=== PATIENT | male | born 2000 | race Caucasian/White ===

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

== ENCOUNTER 2022-02-10 12:37 | Emergency (ER) | payer MEDICAID ==
[~2022-02-10] VITALS: Ht 172.7 cm; Wt 66.0 kg
[2022-02-10] MEDS ORDERED: IPRATROPIUM BROMIDE (0.02%) 0.5MG/2.5ML NEB HHN STA (14:19)
[2022-02-10] MEDS ORDERED: ALBUTEROL (0.083%) 2.5MG/3ML NEB HHN STA (14:19)
[2022-02-10] MEDS ORDERED: PREDNISONE 20MG TABLET PO STA (14:19)
[2022-02-10 14:30] VITALS: BP 110/74
[2022-02-10] MEDS ORDERED: P50 MT (15:09)
[2022-02-10] MEDS ORDERED: ALBU6.7H9 INH (15:09)
[2022-02-10] MEDS ORDERED: GUAI600T26 MT (15:09)
== END 2022-02-10 16:12 | disposition home or self-care (01) ==
LOC: ER 13:57
DX: J20.9 Acute bronchitis, unspecified (principal); R06.2 Wheezing
CPT/HCPCS: 71045; 94640; 99283; J7512; Z7610

== ENCOUNTER 2022-04-07 13:31 | Emergency (ER) | payer MEDICAID ==
[~2022-04-07] VITALS: Ht 172.7 cm; Wt 70.0 kg
[~2022-04-07 13:31] MED LIST: ALBU6.7H9 INH; GUAI600T26 MT; P50 MT
[2022-04-07] MEDS ORDERED: VISCOUS LIDOCAINE 2% 15 ML UDC MM PRN (14:15)
[2022-04-07] MEDS ORDERED: IBUPROFEN 600MG TABLET PO ONE (14:15)
[2022-04-07 14:16] VITALS: BP 132/87
[2022-04-07] MEDS ORDERED: BENZ1LOZ73 MT (15:18)
[2022-04-07] MEDS ORDERED: IBUP-2029 MT (15:18)
== END 2022-04-07 15:39 | disposition home or self-care (01) ==
LOC: ER 13:42
DX: U07.1 COVID-19 (principal)
CPT/HCPCS: 99283

== ENCOUNTER 2023-05-08 10:21 | Emergency (ER) | payer MEDICAID ==
[~2023-05-08] VITALS: Ht 172.7 cm; Wt 73.0 kg
[~2023-05-08 10:21] MED LIST changes: +ALBU6.7H3 INH; -ALBU6.7H9 INH; +BENZ1LOZ73 MT; +IBUP-2029 MT
[2023-05-08 10:55] VITALS: BP 136/80; PULSE 70; RESP 20; TEMP 98.7; O2SAT 99
[2023-05-08] MEDS ORDERED: LIDOCAINE HCL 1% 20ML VIAL (Pyxis) INJ INFIL ONE (11:30)
== END 2023-05-08 12:19 | disposition home or self-care (01) ==
LOC: ER 10:21
DX: M79.644 Pain in right finger(s) (principal); W45.8XXA Other foreign body or object entering through skin, initial encounter; Y93.89 Activity, other specified; Y92.89 Other specified places as the place of occurrence of the external cause; Y99.8 Other external cause status
CPT/HCPCS: 99284; J3490; 20520

== ENCOUNTER 2023-08-08 23:28 | Emergency (ER) | payer MEDICAID ==
[~2023-08-08] VITALS: Ht 172.7 cm; Wt 67.0 kg
[2023-08-09 00:41] VITALS: BP 144/93; PULSE 80; RESP 18; O2SAT 99
[2023-08-09] MEDS ORDERED: ACETAMINOPHEN 325MG TABLET PO STA (02:05)
[2023-08-09 02:24] VITALS: TEMP 98.2
[2023-08-09] MEDS ORDERED: D-ME473S50 PO (03:41)
[2023-08-09] MEDS ORDERED: NAPR-681 PO (03:41)
[2023-08-09] MEDS ORDERED: ALBU18HF2 IH (03:41)
== END 2023-08-09 03:52 | disposition home or self-care (01) ==
LOC: ER 23:39
DX: K52.9 Noninfective gastroenteritis and colitis, unspecified (principal); B34.9 Viral infection, unspecified; Z20.822 Contact with and (suspected) exposure to COVID-19
CPT/HCPCS: 99284; 71045; 87426; 87430; 87070; C9803